=== PATIENT | male | born 1940 | race Caucasian/White ===

== ENCOUNTER 2023-01-09 06:06 | Inpatient (IN) | payer OTHER ==
[2022-12-31 13:22] VITALS: BMI 29.4
[2023-01-09] MEDS ORDERED: EPINEPHrine/PF 1 MG/1 ML (1:1,000) AMPULE ONE (07:11)
[2023-01-09] MEDS ORDERED: VANCOMYCIN 1,000 MG VIAL (RESTRICTED TO ID ONLY) ONE (07:11)
[2023-01-09] MEDS ORDERED: TRANEXAMIC ACID 1000 MG/10 ML VIAL ONE ×2 (07:11→08:34)
[2023-01-09] MEDS ORDERED: PROPOFOL 20 ML ONE (07:37)
[2023-01-09] MEDS ORDERED: MIDAZOLAM HCL 2 MG/2 ML SINGLE DOSE VIAL ONE (07:37)
[2023-01-09] MEDS ORDERED: BUPIVACAINE HCL/PF 0.5% (5MG/ML) 10 ML VIAL ONE (07:40)
[2023-01-09] MEDS ORDERED: BUPIVACAINE LIPOSOME/PF (EXPAREL) 266 MG/20 ML VIAL ONE (07:40)
[2023-01-09] MEDS ORDERED: DEXAMETHASONE SOD PHOSPHATE 4 MG/1 ML VIAL ONE (08:48)
[2023-01-09] MEDS ORDERED: ONDANSETRON 4 MG/2 ML VIAL ONE (08:48)
[2023-01-09] MEDS ORDERED: ROCURONIUM BROMIDE 50 MG/5 ML SYRINGE ONE (08:49)
[2023-01-09] MEDS ORDERED: PROPOFOL 40 ML ONE (09:36)
[2023-01-09] MEDS ORDERED: SUGAMMADEX SODIUM 200 MG/2 ML VIAL ONE (09:38)
[2023-01-09] MEDS ORDERED: MAG HYDROX/AL HYDROX/SIMETH 30 ML UNIT-DOSE CUP PO PRN (10:28)
[2023-01-09] MEDS ORDERED: ONDANSETRON 4 MG/2 ML VIAL IVPUSH PRN (10:28)
[2023-01-09] MEDS ORDERED: MAGNESIUM HYDROX 2400MG/30ML ORAL SUSPENSION 30 ML CUP PO PRN ×2 (10:28→10:57)
[2023-01-09] MEDS ORDERED: LACTATED RINGERS SOLUTION 1,000 ML IV SCH (10:30)
[2023-01-09] MEDS ORDERED: ACETAMINOPHEN 500 MG TABLET (FP) PO PRN (10:37)
[2023-01-09] MEDS ORDERED: traMADol HCL 50 MG TABLET PO PRN (10:38)
[2023-01-09] MEDS ORDERED: oxyCODONE HCL 5 MG TABLET PO PRN (10:57)
[2023-01-09] MEDS ORDERED: ACETAMINOPHEN 1000 MG/100 ML BAG IVPB ONE (10:57)
[2023-01-09 16:44] LABS: HEMATOCRIT 38.1 % (35.4-49); HEMOGLOBIN 13.3 G/dL (11.7-16.9); MCH 31.3 pg (25.7-33.7); MCHC 34.9 g/dl (32.0-35.9); MEAN CELL VOLUME 89.8 fl (80-96); PLATELET COUNT 141.7 10^3/uL (134-434); RBC 4.24 10^6/uL (4.00-5.60); RDW 14.6 % (11.9-15.9); WHITE BLOOD COUNT 18.8 10^3/uL (4.0-10.8)
[2023-01-09] MEDS: oxyCODONE HCL 5 MG TABLET PO PRN ×2 (16:47→21:07)
[2023-01-09] MEDS: CEFAZOLIN SODIUM 2 GM in DEXTROSE 5%-WATER 100 ML IVPB SCH (16:48)
[2023-01-09 16:55] LABS: ALBUMIN 3.9 g/dl (3.4-5.0); BILIRUBIN,TOTAL 0.6 mg/dl (0.2-1); CALCIUM 9.4 mg/dl (8.5-10); CREATININE 1.7 mg/dl (0.55-1.3); TOT PROT 7.1 g/dl (6.4-8.2)
[2023-01-09] MEDS ORDERED: VANCOMYCIN/WATER FOR INJ (PEG) 1,000 MG/200 ML BAG IVPB ONE (20:30)
[2023-01-09] MEDS: ATENOLOL 50 MG TABLET (FP) PO SCH (21:08)
[2023-01-09] MEDS: SENNOSIDES/DOCUSATE COMBO (SENNA PLUS) TABLET (UD) PO SCH (21:08)
[2023-01-09] MEDS ORDERED: TAMSULOSIN HCL 0.4 MG CAP PO SCH (22:00)
[2023-01-09 22:05] VITALS: RESP 18
[2023-01-10] MEDS ORDERED: CEFAZOLIN SODIUM 2 GM in DEXTROSE 5%-WATER 100 ML IVPB SCH
[2023-01-10] MEDS ORDERED: LEVOTHYROXINE NA 150 MCG TABLET PO SCH (07:00)
[2023-01-10] MEDS ORDERED: ASPIRIN 325 MG TABLET PO SCH (08:00)
[2023-01-10 09:31] LABS: ALBUMIN 3.7 g/dl (3.4-5.0); BILIRUBIN,TOTAL 0.6 mg/dl (0.2-1); CALCIUM 9.4 mg/dl (8.5-10); CREATININE 1.5 mg/dl (0.55-1.3); TOT PROT 6.7 g/dl (6.4-8.2)
[2023-01-10 09:40] VITALS: BP 119/56; PULSE 67; TEMP 98.3
[2023-01-10] MEDS ORDERED: HYDROCHLOROTHIAZIDE 25 MG TABLET (FP) PO SCH (10:00)
[2023-01-10] MEDS ORDERED: ALLOPURINOL 100 MG TABLET (FP) PO SCH (10:00)
[2023-01-10] MEDS ORDERED: MULTIVITAMINS (DAILY MVI) TABLET (FP) PO SCH (10:00)
[2023-01-10] MEDS ORDERED: FENOFIBRIC ACID 135 MG CAP PO SCH (10:00)
[2023-01-10] MEDS ORDERED: FAMOTIDINE 10 MG TABLET PO SCH (10:00)
[2023-01-10] MEDS ORDERED: DUTASTERIDE 0.5 MG CAP (FP) PO SCH (10:00)
[2023-01-10] MEDS: ATENOLOL 50 MG TABLET (FP) PO SCH (10:05)
[2023-01-10] MEDS: SENNOSIDES/DOCUSATE COMBO (SENNA PLUS) TABLET (UD) PO SCH (10:06)
[2023-01-10] MEDS: CEFAZOLIN SODIUM 2 GM in DEXTROSE 5%-WATER 100 ML IVPB SCH (10:08)
[2023-01-10 13:19] LABS: HEMATOCRIT 38.6 % (35.4-49); HEMOGLOBIN 12.5 GM/dL (11.7-16.9); MCHC 32.4 g/dl (32.0-35.9); MEAN CELL VOLUME 89.6 fl (80-96); RBC 4.31 M/mm3 (4.00-5.60); RDW 15.3 % (11.9-15.9)
[2023-01-10 13:27] LABS: MEAN PLT VOLUME 11.2 fl (7.5-11.1); PLATELET COUNT 128 10^3/uL (134-434)
[2023-01-10 14:19] LABS: ANISOCYTOSIS 0; HELMET CELLS 0; HOWELL-JOLLY BODIES 0; MACROCYTOSIS 0; OVALOCYTE 0; ROULEAU 0; SICKELED CELLS 0; TARGET CELLS 0; TEAR DROP CELLS 0; TOXIC GRANULATION 0
== END 2023-01-10 14:04 | disposition home or self-care (01) | DRG 483 ==
LOC: FASUSAT 06:06 → FM/S 10:39 → FASUSAT 10:39 → FM/S 12:21
PROVIDERS: ADMIT Orthopaedic Surgery; ATTEND Orthopaedic Surgery
PROC: 0LS40ZZ Reposition Left Upper Arm Tendon, Open Approach (ICD-10-PCS; 2023-01-09)
PROC: 0RRK00Z Replacement of Left Shoulder Joint with Reverse Ball and Socket Synthetic Substitute, Open Approach (ICD-10-PCS; principal; 2023-01-09 08:35)
DX: M19.012 Primary osteoarthritis, left shoulder (principal); M75.102 Unspecified rotator cuff tear or rupture of left shoulder, not specified as traumatic; M75.22 Bicipital tendinitis, left shoulder; E78.5 Hyperlipidemia, unspecified; E03.9 Hypothyroidism, unspecified; N18.9 Chronic kidney disease, unspecified; I12.9 Hypertensive chronic kidney disease with stage 1 through stage 4 chronic kidney disease, or unspecified chronic kidney disease
CPT/HCPCS: 36415; 73030-TC-LT-FY; 80048; 80053; 85025; 85027; 88305-TC; 88311-TC; 94760; C1713; C1776; C9803-CS; U0003; U0005

== ENCOUNTER 2023-04-16 06:25 | Inpatient (IN) | payer OTHER ==
[2023-04-15 15:56] VITALS: BMI 29.4
[~2023-04-16 06:25] MED LIST: TRANEXAMIC ACID 1000 MG/10 ML VIAL IVPUSH ONE
[2023-04-16] MEDS ORDERED: TRANEXAMIC ACID 1000 MG/10 ML VIAL ONE ×2 (07:17→08:15)
[2023-04-16] MEDS ORDERED: VANCOMYCIN 1,000 MG VIAL (RESTRICTED TO ID ONLY) ONE (07:17)
[2023-04-16] MEDS ORDERED: BUPIVACAINE HCL/PF 0.5% (5MG/ML) 10 ML VIAL ONE (07:29)
[2023-04-16] MEDS ORDERED: BUPIVACAINE LIPOSOME/PF (EXPAREL) 266 MG/20 ML VIAL ONE (07:29)
[2023-04-16] MEDS ORDERED: MIDAZOLAM HCL 2 MG/2 ML SINGLE DOSE VIAL ONE (07:29)
[2023-04-16] MEDS ORDERED: ROCURONIUM BROMIDE 50 MG/5 ML SYRINGE ONE ×3 (07:47→10:42)
[2023-04-16] MEDS ORDERED: PROPOFOL 20 ML ONE ×2 (07:47→11:48)
[2023-04-16] MEDS ORDERED: SUCCINYLCHOLINE CHLORIDE 200 MG/10 ML SYRINGE ONE (07:47)
[2023-04-16] MEDS ORDERED: SUGAMMADEX SODIUM 200 MG/2 ML VIAL ONE (10:14)
[2023-04-16] MEDS ORDERED: VANCOMYCIN/WATER FOR INJ (PEG) 1,000 MG/200 ML BAG IVPB ONE (10:15)
[2023-04-16] MEDS ORDERED: ONDANSETRON 4 MG/2 ML VIAL IVPUSH PRN ×2 (12:25→12:29)
[2023-04-16] MEDS ORDERED: MAG HYDROX/AL HYDROX/SIMETH 30 ML UNIT-DOSE CUP PO PRN (12:29)
[2023-04-16] MEDS ORDERED: LACTATED RINGERS SOLUTION 1,000 ML IV SCH (12:30)
[2023-04-16] MEDS ORDERED: oxyCODONE HCL 5 MG TABLET PO PRN (12:52)
[2023-04-16] MEDS: ACETAMINOPHEN 1000 MG/100 ML BAG IVPB ONE ×2 (13:10→14:04)
[2023-04-16] MEDS ORDERED: ACETAMINOPHEN INJECTION 100 ML IVPB ONE (13:10)
[2023-04-16 13:22] LABS: BF WBC & OTHER NUCLEATED CELLS 11208 /mm3
[2023-04-16] MEDS: ACETAMINOPHEN 1000 MG/100 ML BAG IVPB SCH ×3 (14:06→20:27)
[2023-04-16 14:19] LABS: BODY FLUID MONOCYTE 6 %
[2023-04-16] MEDS ORDERED: CEFAZOLIN 1 GM in DEXTROSE 5%-WATER - 50 ML IVPB SCH (20:00)
[2023-04-16] MEDS: oxyCODONE HCL 5 MG TABLET PO PRN (20:26)
[2023-04-16] MEDS: CEFTRIAXONE 2 GM in DEXTROSE 5%-WATER 100 ML IVPB SCH (20:27)
[2023-04-16] MEDS: SENNOSIDES/DOCUSATE COMBO (SENNA PLUS) TABLET (UD) PO SCH (21:12)
[2023-04-16] MEDS: TAMSULOSIN HCL 0.4 MG CAP PO SCH (21:13)
[2023-04-16] MEDS: ATENOLOL 50 MG TABLET (FP) PO SCH (22:01)
[2023-04-17] MEDS: oxyCODONE HCL 5 MG TABLET PO PRN (01:30)
[2023-04-17] MEDS: ACETAMINOPHEN 1000 MG/100 ML BAG IVPB SCH ×2 (04:01→20:06)
[2023-04-17 08:14] LABS: HEMATOCRIT 33.1 % (35.4-49); HEMOGLOBIN 10.7 G/dL (11.7-16.9); MCH 28.5 pg (25.7-33.7); MCHC 32.4 g/dl (32.0-35.9); MEAN CELL VOLUME 87.9 fl (80-96); MEAN PLT VOLUME 10.9 fl (7.5-11.1); PLATELET COUNT 160.6 10^3/uL (134-434); RBC 3.77 10^6/uL (4.00-5.60); RDW 15.4 % (11.9-15.9); WHITE BLOOD COUNT 17.6 10^3/uL (4.0-10.8)
[2023-04-17 08:35] LABS: CALCIUM 8.8 mg/dl (8.5-10); CREATININE 1.5 mg/dl (0.55-1.3); POTASSIUM 4.2 mmol/L (3.5-5.1)
[2023-04-17] MEDS: CEFTRIAXONE 2 GM in DEXTROSE 5%-WATER 100 ML IVPB SCH (09:21)
[2023-04-17] MEDS: LEVOTHYROXINE NA 150 MCG TABLET PO SCH (09:22)
[2023-04-17] MEDS ORDERED: VANCOMYCIN 1 GM/200 ML PREMIX BAG (RESTRICTED TO ID ONLY) IVPB ONE (10:00)
[2023-04-17] MEDS ORDERED: LEVOTHYROXINE NA 150 MCG TABLET PO SCH (10:00)
[2023-04-17] MEDS ORDERED: VANCOMYCIN/WATER 1250 MG 1,250 MG/250 ML BAG IVPB SCH (10:00)
[2023-04-17] MEDS ORDERED: HYDROCHLOROTHIAZIDE 25 MG TABLET (FP) PO SCH (10:00)
[2023-04-17] MEDS: PANTOPRAZOLE 40 MG TABLET PO SCH (10:16)
[2023-04-17] MEDS: ASPIRIN 325 MG TABLET PO SCH (10:16)
[2023-04-17] MEDS: FAMOTIDINE 10 MG TABLET PO SCH (10:16)
[2023-04-17] MEDS: SENNOSIDES/DOCUSATE COMBO (SENNA PLUS) TABLET (UD) PO SCH ×2 (10:17→22:46)
[2023-04-17] MEDS: ATENOLOL 50 MG TABLET (FP) PO SCH ×2 (10:17→22:46)
[2023-04-17] MEDS: FENOFIBRIC ACID 135 MG CAP PO SCH (10:17)
[2023-04-17] MEDS: ALLOPURINOL 100 MG TABLET (FP) PO SCH (10:17)
[2023-04-17] MEDS: POTASSIUM CHLORIDE TABS 10 MEQ TABLET.ER (FP) PO SCH (10:17)
[2023-04-17] MEDS: DUTASTERIDE 0.5 MG CAP (FP) PO SCH (10:21)
[2023-04-17] MEDS: TAMSULOSIN HCL 0.4 MG CAP PO SCH (22:46)
[2023-04-18] MEDS: ACETAMINOPHEN 1000 MG/100 ML BAG IVPB SCH ×3 (05:22→14:37)
[2023-04-18] MEDS: LEVOTHYROXINE NA 150 MCG TABLET PO SCH (06:00)
[2023-04-18] MEDS: PANTOPRAZOLE 40 MG TABLET PO SCH (09:30)
[2023-04-18] MEDS: SENNOSIDES/DOCUSATE COMBO (SENNA PLUS) TABLET (UD) PO SCH ×2 (09:30→21:24)
[2023-04-18] MEDS: MAGNESIUM HYDROX 2400MG/30ML ORAL SUSPENSION 30 ML CUP PO PRN (09:30)
[2023-04-18] MEDS: ASPIRIN 325 MG TABLET PO SCH (09:31)
[2023-04-18] MEDS: FENOFIBRIC ACID 135 MG CAP PO SCH (09:31)
[2023-04-18] MEDS: ALLOPURINOL 100 MG TABLET (FP) PO SCH (09:31)
[2023-04-18] MEDS: ATENOLOL 50 MG TABLET (FP) PO SCH ×2 (09:31→21:24)
[2023-04-18] MEDS: POTASSIUM CHLORIDE TABS 10 MEQ TABLET.ER (FP) PO SCH (09:31)
[2023-04-18] MEDS: FAMOTIDINE 10 MG TABLET PO SCH (09:31)
[2023-04-18] MEDS: VANCOMYCIN/WATER FOR INJ (PEG) 1,000 MG/200 ML BAG IVPB SCH (09:32)
[2023-04-18] MEDS: CEFTRIAXONE 2 GM in DEXTROSE 5%-WATER 100 ML IVPB SCH (09:32)
[2023-04-18] MEDS: DUTASTERIDE 0.5 MG CAP (FP) PO SCH (09:34)
[2023-04-18 09:59] LABS: ALBUMIN 3.1 g/dl (3.4-5.0); BILIRUBIN,TOTAL 0.6 mg/dl (0.2-1); CALCIUM 8.7 mg/dl (8.5-10); CREATININE 1.5 mg/dl (0.55-1.3); POTASSIUM 3.9 mmol/L (3.5-5.1); TOT PROT 6.4 g/dl (6.4-8.2)
[2023-04-18] MEDS ORDERED: POLYETHYLENE GLYCOL (HEALTHYLAX) 3350 17 GM PACKET PO PRN (10:00)
[2023-04-18 10:43] LABS: HEMATOCRIT 30.7 % (35.4-49); HEMOGLOBIN 9.9 GM/dL (11.7-16.9); MCH 27.9 pg (25.7-33.7); MCHC 32.3 g/dl (32.0-35.9); MEAN CELL VOLUME 86.3 fl (80-96); PLATELET COUNT 197 10^3/uL (134-434); RBC 3.56 M/mm3 (4.00-5.60); RDW 16.1 % (11.9-15.9); WHITE BLOOD COUNT 16.9 K/mm3 (4.0-10.0)
[2023-04-18 11:22] LABS: ANISOCYTOSIS 0; HELMET CELLS 0; HOWELL-JOLLY BODIES 0; MACROCYTOSIS 0; OVALOCYTE 0; ROULEAU 0; SICKELED CELLS 0; TARGET CELLS 0; TEAR DROP CELLS 0; TOXIC GRANULATION 0
[2023-04-18] MEDS: TAMSULOSIN HCL 0.4 MG CAP PO SCH (21:24)
[2023-04-19] MEDS: LEVOTHYROXINE NA 150 MCG TABLET PO SCH (06:28)
[2023-04-19] MEDS: ATENOLOL 50 MG TABLET (FP) PO SCH ×2 (09:35→21:05)
[2023-04-19] MEDS: FAMOTIDINE 10 MG TABLET PO SCH (09:35)
[2023-04-19] MEDS: VANCOMYCIN/WATER FOR INJ (PEG) 1,000 MG/200 ML BAG IVPB SCH (09:35)
[2023-04-19] MEDS: ALLOPURINOL 100 MG TABLET (FP) PO SCH (09:35)
[2023-04-19] MEDS: ASPIRIN 325 MG TABLET PO SCH (09:36)
[2023-04-19] MEDS: FENOFIBRIC ACID 135 MG CAP PO SCH (09:36)
[2023-04-19] MEDS: SENNOSIDES/DOCUSATE COMBO (SENNA PLUS) TABLET (UD) PO SCH ×2 (09:36→21:05)
[2023-04-19] MEDS: POTASSIUM CHLORIDE TABS 10 MEQ TABLET.ER (FP) PO SCH (09:36)
[2023-04-19] MEDS: PANTOPRAZOLE 40 MG TABLET PO SCH (09:36)
[2023-04-19] MEDS: CEFTRIAXONE 2 GM in DEXTROSE 5%-WATER 100 ML IVPB SCH (09:37)
[2023-04-19] MEDS: DUTASTERIDE 0.5 MG CAP (FP) PO SCH (09:37)
[2023-04-19] MEDS: ACETAMINOPHEN 500 MG TABLET (FP) PO PRN ×2 (10:47→18:04)
[2023-04-19] MEDS: MAGNESIUM HYDROX 2400MG/30ML ORAL SUSPENSION 30 ML CUP PO PRN (18:04)
[2023-04-19] MEDS: TAMSULOSIN HCL 0.4 MG CAP PO SCH (21:05)
[2023-04-20] MEDS: LEVOTHYROXINE NA 150 MCG TABLET PO SCH (06:52)
[2023-04-20 08:17] LABS: ALBUMIN 2.9 g/dl (3.4-5.0); BILIRUBIN,TOTAL 0.2 mg/dl (0.2-1); CALCIUM 8.9 mg/dl (8.5-10); CREATININE 1.2 mg/dl (0.55-1.3); POTASSIUM 4.2 mmol/L (3.5-5.1); TOT PROT 6.4 g/dl (6.4-8.2)
[2023-04-20 09:18] VITALS: TEMP 98.8
[2023-04-20] MEDS: CEFTRIAXONE 2 GM in DEXTROSE 5%-WATER 100 ML IVPB SCH (09:18)
[2023-04-20] MEDS: FAMOTIDINE 10 MG TABLET PO SCH (09:18)
[2023-04-20] MEDS: ATENOLOL 50 MG TABLET (FP) PO SCH (09:19)
[2023-04-20] MEDS: PANTOPRAZOLE 40 MG TABLET PO SCH (09:19)
[2023-04-20] MEDS: FENOFIBRIC ACID 135 MG CAP PO SCH (09:19)
[2023-04-20] MEDS: ALLOPURINOL 100 MG TABLET (FP) PO SCH (09:19)
[2023-04-20] MEDS: ASPIRIN 325 MG TABLET PO SCH (09:19)
[2023-04-20] MEDS: POTASSIUM CHLORIDE TABS 10 MEQ TABLET.ER (FP) PO SCH (09:19)
[2023-04-20] MEDS: DUTASTERIDE 0.5 MG CAP (FP) PO SCH ×2 (09:22→09:32)
[2023-04-20] MEDS: SENNOSIDES/DOCUSATE COMBO (SENNA PLUS) TABLET (UD) PO SCH (09:22)
[2023-04-20] MEDS: ACETAMINOPHEN 500 MG TABLET (FP) PO PRN (09:55)
[2023-04-20 09:56] LABS: HEMATOCRIT 30.8 % (35.4-49); HEMOGLOBIN 9.9 GM/dL (11.7-16.9); MCH 27.8 pg (25.7-33.7); MCHC 32.1 g/dl (32.0-35.9); MEAN CELL VOLUME 86.4 fl (80-96); MEAN PLT VOLUME 10.5 fl (7.5-11.1); PLATELET COUNT 209 10^3/uL (134-434); RBC 3.56 M/mm3 (4.00-5.60); RDW 15.7 % (11.9-15.9); WHITE BLOOD COUNT 13.4 K/mm3 (4.0-10.0)
[2023-04-20 12:08] LABS: ANISOCYTOSIS 2+; MACROCYTOSIS 0; OVALOCYTE 2+
[2023-04-20 13:21] VITALS: BP 148/72; PULSE 56; RESP 18
== END 2023-04-20 15:27 | disposition home or self-care (01) | DRG 483 ==
LOC: FM/S 06:25
PROC: 0RRK00Z Replacement of Left Shoulder Joint with Reverse Ball and Socket Synthetic Substitute, Open Approach (ICD-10-PCS; 2023-04-16)
PROC: 0RPK0JZ Removal of Synthetic Substitute from Left Shoulder Joint, Open Approach (ICD-10-PCS; 2023-04-16)
PROC: 0RHK08Z Insertion of Spacer into Left Shoulder Joint, Open Approach (ICD-10-PCS; 2023-04-16)
PROC: B548ZZA Ultrasonography of Superior Vena Cava, Guidance (ICD-10-PCS; 2023-04-16)
PROC: 02HV33Z Insertion of Infusion Device into Superior Vena Cava, Percutaneous Approach (ICD-10-PCS; principal; 2023-04-16 08:29)
DX: T84.59XA Infection and inflammatory reaction due to other internal joint prosthesis, initial encounter (principal); E87.1 Hypo-osmolality and hyponatremia; Y83.8 Other surgical procedures as the cause of abnormal reaction of the patient, or of later complication, without mention of misadventure at the time of the procedure; I12.9 Hypertensive chronic kidney disease with stage 1 through stage 4 chronic kidney disease, or unspecified chronic kidney disease; N18.9 Chronic kidney disease, unspecified; E03.9 Hypothyroidism, unspecified; D72.820 Lymphocytosis (symptomatic); E78.5 Hyperlipidemia, unspecified; M25.312 Other instability, left shoulder; N40.0 Benign prostatic hyperplasia without lower urinary tract symptoms; M10.9 Gout, unspecified; Z95.0 Presence of cardiac pacemaker
CPT/HCPCS: 36415; 36569; 73030-TC-LT-FY; 80048; 80053; 80061; 81003; 81015; 82570; 83036; 83520; 83735; 84156; 84439; 84443; 85025; 85027; 85651; 86140; 86141; 87040; 87070; 87075; 87205; 87635; 88300-TC; 88305-TC; 88331-TC; 94760; 97010-GP; 97116-GP; 97162-GP; C1776

== ENCOUNTER 2023-04-21 12:00 | Day surgery (SDC) | payer OTHER ==
[2023-04-21] MEDS ORDERED: CEFTRIAXONE 2 GM in DEXTROSE 5%-WATER 100 ML IVPB ONE (12:15)
[2023-04-21 13:39] VITALS: BP 128/87; PULSE 72; RESP 16; TEMP 98.5
== END 2023-04-21 13:39 | disposition home or self-care (01) ==
LOC: FINFUSION 12:00 → FM/S 12:02 → FINFUSION 13:39
PROVIDERS: ATTEND Internal Medicine
DX: T84.59XD Infection and inflammatory reaction due to other internal joint prosthesis, subsequent encounter (principal); Y83.8 Other surgical procedures as the cause of abnormal reaction of the patient, or of later complication, without mention of misadventure at the time of the procedure; Y79.1 Therapeutic (nonsurgical) and rehabilitative orthopedic devices associated with adverse incidents
CPT/HCPCS: 96365

== ENCOUNTER 2023-04-22 11:43 | Day surgery (SDC) | payer OTHER ==
[2023-04-22] MEDS ORDERED: CEFTRIAXONE 2 GM in DEXTROSE 5%-WATER 100 ML IVPB ONE (12:30)
[2023-04-22 14:01] VITALS: BP 118/79; PULSE 65; RESP 16; TEMP 98.1
== END 2023-04-22 14:04 | disposition home or self-care (01) ==
LOC: FM/S 11:43 → FINFUSION 11:43
PROVIDERS: ATTEND Internal Medicine
DX: T84.59XD Infection and inflammatory reaction due to other internal joint prosthesis, subsequent encounter (principal); Y83.8 Other surgical procedures as the cause of abnormal reaction of the patient, or of later complication, without mention of misadventure at the time of the procedure; Y79.1 Therapeutic (nonsurgical) and rehabilitative orthopedic devices associated with adverse incidents
CPT/HCPCS: 96365

== ENCOUNTER 2023-04-23 14:13 | Day surgery (SDC) | payer OTHER ==
[2023-04-23] MEDS ORDERED: CEFTRIAXONE 2 GM in DEXTROSE 5%-WATER 100 ML IVPB ONE (14:30)
[2023-04-23 17:04] VITALS: BP 140/66; PULSE 62; RESP 18; TEMP 98.3
== END 2023-04-23 16:45 | disposition home or self-care (01) ==
LOC: FINFUSION 14:13 → FM/S 14:14 → FINFUSION 16:45
PROVIDERS: ATTEND Internal Medicine
DX: T84.59XD Infection and inflammatory reaction due to other internal joint prosthesis, subsequent encounter (principal); Y83.8 Other surgical procedures as the cause of abnormal reaction of the patient, or of later complication, without mention of misadventure at the time of the procedure; Y79.1 Therapeutic (nonsurgical) and rehabilitative orthopedic devices associated with adverse incidents
CPT/HCPCS: 96365

== ENCOUNTER 2023-04-24 14:21 | Day surgery (SDC) | payer OTHER ==
[2023-04-24] MEDS ORDERED: CEFTRIAXONE 2 GM in DEXTROSE 5%-WATER 100 ML IVPB ONE (15:00)
[2023-04-24 15:14] VITALS: RESP 18; TEMP 98.2
[2023-04-24 15:35] VITALS: BP 122/52; PULSE 110
== END 2023-04-24 15:36 | disposition home or self-care (01) ==
LOC: FINFUSION 14:21 → FM/S 14:22 → FINFUSION 15:36
PROVIDERS: ATTEND Internal Medicine
DX: T84.59XD Infection and inflammatory reaction due to other internal joint prosthesis, subsequent encounter (principal); Y83.8 Other surgical procedures as the cause of abnormal reaction of the patient, or of later complication, without mention of misadventure at the time of the procedure; Y79.1 Therapeutic (nonsurgical) and rehabilitative orthopedic devices associated with adverse incidents
CPT/HCPCS: 96365

== ENCOUNTER 2023-04-25 11:35 | Day surgery (SDC) | payer OTHER ==
[2023-04-25] MEDS ORDERED: CEFTRIAXONE 2 GM in SODIUM CHLORIDE 100 ML IVPB SCH (12:15)
[2023-04-25 12:56] VITALS: RESP 18; TEMP 98
[2023-04-25 16:34] VITALS: BP 120/70; PULSE 82
== END 2023-04-25 13:55 | disposition home or self-care (01) ==
LOC: FINFUSION 11:35 → FM/S 11:38 → FINFUSION 13:30
PROVIDERS: ATTEND Internal Medicine
DX: T84.59XD Infection and inflammatory reaction due to other internal joint prosthesis, subsequent encounter (principal); Y83.8 Other surgical procedures as the cause of abnormal reaction of the patient, or of later complication, without mention of misadventure at the time of the procedure; Y79.1 Therapeutic (nonsurgical) and rehabilitative orthopedic devices associated with adverse incidents
CPT/HCPCS: 96365

== ENCOUNTER 2023-04-26 12:04 | Day surgery (SDC) | payer OTHER ==
[2023-04-26] MEDS ORDERED: CEFTRIAXONE 2 GM in DEXTROSE 5%-WATER 100 ML IVPB ONE (13:15)
[2023-04-26 13:55] VITALS: BP 124/58; PULSE 60; RESP 18; TEMP 98.2
== END 2023-04-26 13:55 | disposition home or self-care (01) ==
LOC: FM/S 12:04 → FINFUSION 12:04
PROVIDERS: ATTEND Internal Medicine
DX: T84.59XD Infection and inflammatory reaction due to other internal joint prosthesis, subsequent encounter (principal); Y83.8 Other surgical procedures as the cause of abnormal reaction of the patient, or of later complication, without mention of misadventure at the time of the procedure; Y79.1 Therapeutic (nonsurgical) and rehabilitative orthopedic devices associated with adverse incidents
CPT/HCPCS: 96365

== ENCOUNTER 2023-04-27 13:23 | Day surgery (SDC) | payer OTHER ==
[~2023-04-27 13:23] MED LIST changes: +CEFTRIAXONE 2 GM in DEXTROSE 5%-WATER 100 ML IVPB ONE; -TRANEXAMIC ACID 1000 MG/10 ML VIAL IVPUSH ONE
[2023-04-27 15:03] VITALS: BP 139/62; PULSE 55; RESP 16; TEMP 98.8
== END 2023-04-27 15:03 | disposition home or self-care (01) ==
LOC: FINFUSION 13:23 → FM/S 13:27 → FINFUSION 15:03
PROVIDERS: ATTEND Internal Medicine
DX: T84.59XD Infection and inflammatory reaction due to other internal joint prosthesis, subsequent encounter (principal); Y83.8 Other surgical procedures as the cause of abnormal reaction of the patient, or of later complication, without mention of misadventure at the time of the procedure; Y79.1 Therapeutic (nonsurgical) and rehabilitative orthopedic devices associated with adverse incidents
CPT/HCPCS: 96365

== ENCOUNTER 2023-04-28 13:04 | Day surgery (SDC) | payer OTHER ==
[2023-04-28] MEDS ORDERED: CEFTRIAXONE 2 GM in DEXTROSE 5%-WATER 100 ML IVPB ONE (13:30)
[2023-04-28 14:19] VITALS: BP 135/62; PULSE 65; RESP 18; TEMP 98
[2023-04-28 14:19] LABS: HEMATOCRIT 33.4 % (35.4-49); HEMOGLOBIN 10.7 G/dL (11.7-16.9); MCH 28.4 pg (25.7-33.7); MCHC 32.1 g/dl (32.0-35.9); MEAN CELL VOLUME 88.4 fl (80-96); MEAN PLT VOLUME 9.6 fl (7.5-11.1); PLATELET COUNT 289.4 10^3/uL (134-434); RBC 3.78 10^6/uL (4.00-5.60); WHITE BLOOD COUNT 14.9 10^3/uL (4.0-10.8)
[2023-04-28 14:44] LABS: ALBUMIN 3.9 g/dl (3.4-5.0); BILIRUBIN,TOTAL 0.3 mg/dl (0.2-1); BLOOD UREA NITROGEN 31.7 mg/dl (7-18); CALCIUM 9.7 mg/dl (8.5-10.1); CREATININE 1.4 mg/dl (0.6-1.3); POTASSIUM 4.4 mmol/L (3.5-5.1); SGOT/AST 13.9 U/L (15-37); SGPT/ALT 7.5 U/L (7-52); TOT PROT 6.6 g/dl (6.4-8.2)
[2023-04-28 14:52] LABS: ERYTHROCYTE SEDIMENTATION RATE 78 mm/hr (0-20)
== END 2023-04-28 14:20 | disposition home or self-care (01) ==
LOC: FINFUSION 13:04 → FM/S 13:04 → FINFUSION 14:20
PROVIDERS: ATTEND Internal Medicine
DX: T84.59XD Infection and inflammatory reaction due to other internal joint prosthesis, subsequent encounter (principal); Y83.8 Other surgical procedures as the cause of abnormal reaction of the patient, or of later complication, without mention of misadventure at the time of the procedure; Y79.1 Therapeutic (nonsurgical) and rehabilitative orthopedic devices associated with adverse incidents
CPT/HCPCS: 36415; 80053; 85027; 85651; 86140; 96365

== ENCOUNTER 2023-04-29 14:44 | Day surgery (SDC) | payer OTHER ==
[2023-04-29] MEDS ORDERED: CEFTRIAXONE 2 GM in DEXTROSE 5%-WATER 100 ML IVPB ONE (15:00)
[2023-04-29 16:53] VITALS: BP 127/56; PULSE 66; RESP 18; TEMP 97.8
== END 2023-04-29 16:32 | disposition home or self-care (01) ==
LOC: FINFUSION 14:44 → FM/S 14:46 → FINFUSION 16:32
PROVIDERS: ATTEND Internal Medicine
DX: T84.59XD Infection and inflammatory reaction due to other internal joint prosthesis, subsequent encounter (principal); Y83.8 Other surgical procedures as the cause of abnormal reaction of the patient, or of later complication, without mention of misadventure at the time of the procedure; Y79.1 Therapeutic (nonsurgical) and rehabilitative orthopedic devices associated with adverse incidents
CPT/HCPCS: 96365

== ENCOUNTER 2023-04-30 11:28 | Day surgery (SDC) | payer OTHER ==
[2023-04-30] MEDS ORDERED: CEFTRIAXONE 2 GM in DEXTROSE 5%-WATER 100 ML IVPB ONE (12:00)
[2023-04-30 19:36] VITALS: BP 130/50; PULSE 50; RESP 18; TEMP 98.6
== END 2023-04-30 13:51 | disposition home or self-care (01) ==
LOC: FINFUSION 11:28 → FM/S 11:29 → FINFUSION 13:51
PROVIDERS: ATTEND Internal Medicine
DX: T84.59XD Infection and inflammatory reaction due to other internal joint prosthesis, subsequent encounter (principal); Y83.8 Other surgical procedures as the cause of abnormal reaction of the patient, or of later complication, without mention of misadventure at the time of the procedure; Y79.1 Therapeutic (nonsurgical) and rehabilitative orthopedic devices associated with adverse incidents
CPT/HCPCS: 96365

== ENCOUNTER 2023-08-10 06:18 | Inpatient (IN) | payer OTHER ==
[2023-08-07 10:10] VITALS: BMI 28.7
[2023-08-10] MEDS ORDERED: VANCOMYCIN 1,000 MG VIAL (RESTRICTED TO ID ONLY) ONE ×2 (07:09→08:04)
[2023-08-10] MEDS ORDERED: MIDAZOLAM HCL 2 MG/2 ML SINGLE DOSE VIAL ONE (07:15)
[2023-08-10] MEDS ORDERED: PROPOFOL 40 ML ONE (07:15)
[2023-08-10] MEDS ORDERED: ROCURONIUM BROMIDE 50 MG/5 ML SYRINGE ONE (07:15)
[2023-08-10] MEDS ORDERED: SUCCINYLCHOLINE CHLORIDE 200 MG/10 ML SYRINGE ONE (07:15)
[2023-08-10] MEDS ORDERED: BUPIVACAINE LIPOSOME/PF (EXPAREL) 266 MG/20 ML VIAL ONE (07:30)
[2023-08-10] MEDS ORDERED: BUPIVACAINE HCL/PF 0.5% (5 MG/ML) 30 ML VIAL IJ ONE (07:30)
[2023-08-10] MEDS ORDERED: CEFAZOLIN 1 GM in DEXTROSE 5%-WATER - 50 ML IVPB ONE (07:39)
[2023-08-10] MEDS ORDERED: VANCOMYCIN 1,000 MG in DEXTROSE 5%-WATER - 250 ML IVPB ONE (08:00)
[2023-08-10] MEDS ORDERED: ceFAZolin SODIUM 1 GM VIAL ONE (08:04)
[2023-08-10] MEDS ORDERED: TRANEXAMIC ACID 1000 MG/10 ML VIAL ONE (08:21)
[2023-08-10] MEDS ORDERED: TRANEXAMIC ACID 1000 MG/10 ML VIAL IVPUSH ONE (08:30)
[2023-08-10] MEDS ORDERED: SUGAMMADEX SODIUM 200 MG/2 ML VIAL ONE (08:57)
[2023-08-10] MEDS ORDERED: DEXAMETHASONE SOD PHOSPHATE 4 MG/1 ML VIAL ONE (10:43)
[2023-08-10] MEDS ORDERED: ONDANSETRON 4 MG/2 ML VIAL ONE (10:43)
[2023-08-10] MEDS ORDERED: MAG HYDROX/AL HYDROX/SIMETH 30 ML UNIT-DOSE CUP PO PRN (11:19)
[2023-08-10] MEDS ORDERED: MAGNESIUM HYDROX 2400MG/30ML ORAL SUSPENSION 30 ML CUP PO PRN (11:19)
[2023-08-10] MEDS ORDERED: oxyCODONE HCL 5 MG TABLET PO PRN ×2 (11:27)
[2023-08-10] MEDS ORDERED: PROMETHAZINE HCL 25 MG/1 ML VIAL IVPB PRN (11:32)
[2023-08-10] MEDS ORDERED: ONDANSETRON 4 MG/2 ML VIAL IVPUSH PRN ×2 (11:32→17:33)
[2023-08-10] MEDS ORDERED: ACETAMINOPHEN INJECTION 100 ML IVPB ONE (11:40)
[2023-08-10] MEDS: ACETAMINOPHEN 1000 MG/100 ML BAG IVPB SCH ×2 (11:44→20:00)
[2023-08-10] MEDS: CEFAZOLIN SODIUM 2 GM in DEXTROSE 5%-WATER 100 ML IVPB SCH (17:17)
[2023-08-10 21:25] VITALS: RESP 18
[2023-08-10] MEDS ORDERED: CALCIUM CARB PO SCH (22:00)
[2023-08-10] MEDS ORDERED: TAMSULOSIN HCL 0.4 MG CAP PO SCH (22:00)
[2023-08-10] MEDS ORDERED: CARBOXYMETHYLCELLULOSE SODIUM OU SCH (22:00)
[2023-08-10] MEDS ORDERED: PSYLLIUM HUSK PO SCH (22:00)
[2023-08-10] MEDS ORDERED: [UNRECOGNIZED DRUG - OTHER] PO SCH (22:00)
[2023-08-10] MEDS: ATENOLOL 50 MG TABLET (FP) PO SCH (22:10)
[2023-08-10] MEDS: SENNOSIDES/DOCUSATE COMBO (SENNA PLUS) TABLET (UD) PO SCH (22:10)
[2023-08-10] MEDS: ARTIFICIAL TEARS (POLYVINYL ALCOHOL) OPTH DROPS OU SCH (22:24)
[2023-08-11] MEDS: CEFAZOLIN SODIUM 2 GM in DEXTROSE 5%-WATER 100 ML IVPB SCH ×2 (00:31→08:16)
[2023-08-11] MEDS: ACETAMINOPHEN 1000 MG/100 ML BAG IVPB SCH ×2 (04:30→12:57)
[2023-08-11] MEDS ORDERED: LEVOTHYROXINE NA 150 MCG TABLET PO SCH (07:00)
[2023-08-11] MEDS ORDERED: ASPIRIN 325 MG TABLET PO SCH (08:00)
[2023-08-11 08:41] LABS: HEMATOCRIT 38.8 % (35.4-49); HEMOGLOBIN 12.4 G/dL (11.7-16.9); MCH 28.3 pg (25.7-33.7); MCHC 31.8 g/dl (32.0-35.9); MEAN CELL VOLUME 89.1 fl (80-96); MEAN PLT VOLUME 11.6 fl (7.5-11.1); PLATELET COUNT 106.8 10^3/uL (134-434); RBC 4.36 10^6/uL (4.00-5.60); RDW 16.3 % (11.9-15.9); WHITE BLOOD COUNT 24.9 10^3/uL (4.0-10.8)
[2023-08-11 09:04] LABS: CREATININE 1.7 mg/dl (0.6-1.3); POTASSIUM 4.2 mmol/L (3.5-5.1)
[2023-08-11] MEDS: SENNOSIDES/DOCUSATE COMBO (SENNA PLUS) TABLET (UD) PO SCH (09:13)
[2023-08-11] MEDS: ATENOLOL 50 MG TABLET (FP) PO SCH (09:13)
[2023-08-11] MEDS: ARTIFICIAL TEARS (POLYVINYL ALCOHOL) OPTH DROPS OU SCH (09:15)
[2023-08-11 09:45] VITALS: BP 110/49; PULSE 60; TEMP 99.2
[2023-08-11] MEDS ORDERED: VANCOMYCIN/WATER FOR INJ (PEG) 1 GM/200 ML BAG IVPB ONE (10:00)
[2023-08-11] MEDS ORDERED: PANTOPRAZOLE 40 MG TABLET PO SCH (10:00)
[2023-08-11] MEDS ORDERED: POTASSIUM CHLORIDE TABS 10 MEQ TABLET.ER (FP) PO SCH (10:00)
[2023-08-11] MEDS ORDERED: HYDROCHLOROTHIAZIDE 25 MG TABLET (FP) PO SCH (10:00)
[2023-08-11] MEDS ORDERED: PATIENT'S OWN MEDICATION (NON-FORMULARY) (Famotidine [Pepcid] 40 MG Tablet) PO SCH (10:00)
[2023-08-11] MEDS ORDERED: PATIENT'S OWN MEDICATION (NON-FORMULARY) (Fenofibrate [Fenofibrate] 150 MG Capsule) PO SCH (10:00)
[2023-08-11] MEDS ORDERED: DUTASTERIDE 0.5 MG CAP (FP) PO SCH (10:00)
[2023-08-11] MEDS ORDERED: MULTIVITAMINS (DAILY MVI) TABLET (FP) PO SCH (10:00)
[2023-08-11] MEDS ORDERED: ALLOPURINOL 100 MG TABLET (FP) PO SCH (10:00)
[2023-08-11] MEDS ORDERED: FENOFIBRIC ACID 135 MG CAP PO SCH (10:00)
== END 2023-08-11 14:17 | disposition home or self-care (01) | DRG 483 ==
LOC: FM/S 06:18
PROVIDERS: ADMIT Internal Medicine; ATTEND Internal Medicine
PROC: 0RPK0J6 Removal of Synthetic Substitute from Left Shoulder Joint, Humeral Surface, Open Approach (ICD-10-PCS; 2023-08-10)
PROC: 0RRK0J6 Replacement of Left Shoulder Joint with Synthetic Substitute, Humeral Surface, Open Approach (ICD-10-PCS; principal; 2023-08-10 08:37)
DX: T84.098A Other mechanical complication of other internal joint prosthesis, initial encounter (principal); D72.820 Lymphocytosis (symptomatic); I10 Essential (primary) hypertension; J44.9 Chronic obstructive pulmonary disease, unspecified; E03.9 Hypothyroidism, unspecified; N40.0 Benign prostatic hyperplasia without lower urinary tract symptoms; Y83.9 Surgical procedure, unspecified as the cause of abnormal reaction of the patient, or of later complication, without mention of misadventure at the time of the procedure
CPT/HCPCS: 36415; 73030-TC-LT-FY; 80048; 85027; 87070; 87075; 87205; 88305-TC; 88331-TC; 94760; 97116-GP; 97162-GP; C1713; C1776

== ENCOUNTER 2025-01-12 07:26 | Day surgery (SDC) | payer OTHER ==
[2025-01-10 13:54] VITALS: BMI 29.7
[2025-01-12] MEDS ORDERED: ACETAMINOPHEN 500 MG TABLET (FP) PO PRN (09:15)
[2025-01-12] MEDS ORDERED: BUPIVACAINE HCL/PF 0.75% 10 ML VIAL ONE (10:20)
[2025-01-12 11:30] VITALS: RESP 18; TEMP 97.6
[2025-01-12 11:56] VITALS: BP 123/69; PULSE 56
== END 2025-01-12 11:45 | disposition home or self-care (01) ==
LOC: JASU-SURG 07:26
PROVIDERS: ATTEND Pain Medicine Pain Medicine
PROC: 3E0T3BZ Introduction of Anesthetic Agent into Peripheral Nerves and Plexi, Percutaneous Approach (ICD-10-PCS; principal; 2025-01-12 11:02)
DX: M47.816 Spondylosis without myelopathy or radiculopathy, lumbar region (principal)
CPT/HCPCS: 76000-TC-FY